=== PATIENT | female | born 2005 | race Caucasian/White ===

== ENCOUNTER 2025-04-17 04:39 | Inpatient (IN) | payer MEDICAID, OTHER ==
--- OUTSIDE RECORDS SUMMARY | 2025-04-17 04:42 | XMS REPORT | Continuity of Care Document ---
Author Name Unknown Address [address] [facility] [address] [place] [address] [facility] Address [address] [facility] [address] [place] [address] Care Team Providers Care Bilingual Branch Manager Name Role Phone JACINTA HERNANDEZ Attending Clinician Unavailable JACINTA HERNANDEZ Admitting Clinician Unavailable Results Test Description Test Time Test Comments Results Result Co mments Source If a specimen is collected by a nurse, then you MUST fill out the Collected and Collected By egan [facility] (HEMOGRAM ONLY)2016-12-10 16:52:00* Test Item Value Reference Range Interpretation Comme nts WBC (test code = WBC) 11.5 k/ul 4.8-10.8 H RBC (test code = RBC) 4.64 Millions/ul 4.20-5.40 Hemoglobin (test code = HGB) 12.3 gm/dl 12.0-14.0 Hematocrit (test code = HCT) 37.1 % 37.0-47.0 MCV (test code = MCV) 80.1 fL 77.0-95.0 MCH (test code = MCH) 26.4 pg 25.0-33.0 MCHC (test code = MCHC) 33.0 gm/dl 33.0-37.0 RDW (test code = RDWVC) 14.4 % 11.5-14.5 Platelet (test code = PLT) 217 10\S\3/ul 130-400 MPV (test code = MPV) 8.8 fL 7.4-10.4 [facility]
[2025-04-17] MEDS ORDERED: FLUMAZENIL 0.1 MG/ML (5 mL VIAL) IV ONE (04:49)
[2025-04-17] MEDS ORDERED: ONDANSETRON 4 MG/2 ML VIAL ONE ×2 (04:51→06:54)
[2025-04-17] MEDS ORDERED: ACTIVATED CHARCOAL 50 GM/240 ML ONE (04:52)
[2025-04-17] MEDS ORDERED: NALOXONE HCL 2 MG/2 ML VIAL ONE (04:52)
[2025-04-17] MEDS ORDERED: NA CHLORIDE 0.9% 1,000 ML ONE ×3 (04:56→10:07)
[2025-04-17 04:58] LABS: Absolute Lymphocytes (CBC) 4.3 K/uL (0.7-4.9); Hematocrit 45.3 % (36.0-45.0); Hemoglobin 15.1 g/dL (12.0-15.0); MCH 29.1 pg (27.0-35.0); MCHC 33.3 g/dL (32.0-36.0); MCV 87.4 fL (80-100); MPV 9.9 fL (7.6-11.3); Nucleated RBC Absolute Count 0.0 (0-0); Nucleated Red Blood Cells % 0.1 % (0-0); RBC Red Blood Cell Count 5.18 M/uL (3.86-4.86); White Blood Count 13.10 thou/uL (4.3-10.9)
[2025-04-17 05:07] LABS: PT Prothrombin Time 11.7 SECONDS (10-13.0); PTT, Activated Partial Thromb 26.9 SECONDS (27.2-37.4); Protime INR 1.04
[2025-04-17 05:23] LABS: Base Excess, VBG -0.6 mmol/L (-2.0-3.0); HCO3, Venous Blood Gas 25.7 mmol/L (21.0-29.0); O2 Saturation, VBG 88.5 % (40.0-70.0); PCO2, Venous Blood Gas 51 mmHg (41-51); PH, Venous Blood Gas 7.31 (7.32-7.42); PO2, Venous Blood Gas 61 mmHg (25-40)
[2025-04-17 05:27] LABS: ALT/SGPT 33 U/L (13-56); AST/SGOT 13 U/L (15-37); Albumin 3.5 g/dL (3.4-5.0); Albumin/Globulin Ratio 0.9 (1.1-1.8); Alkaline Phosphatase 96 U/L (45-117); Anion Gap 11.3 mEq/L (5.0-15.0); BUN Blood Urea Nitrogen 15 mg/dL (7-18); Globulin 3.8 g/dL (2.3-3.5); Glucose Level 200 mg/dL (74-106); Potassium 4.3 mEq/L (3.5-5.1)
[2025-04-17 05:32] LABS: Bilirubin Indirect, Calculated 0.2 mg/dL (0.2-0.8)
[2025-04-17 05:44] LABS: METHAMPHETAM NEGATIVE (NEGATIVE); THC Cannibis NEGATIVE (NEGATIVE)
[2025-04-17] MEDS ORDERED: Acetylcysteine 6000mg/30mL IV ONE ×2 (05:54→22:08)
[2025-04-17] MEDS ORDERED: D5W 250 ML IV ONE (06:00)
--- NOTE | 2025-04-17 06:08 | ER ---
Nurse's Notes [facility] Name: Ash Dominguez Age: 20 yrs Sex: Female : 2005 Arrival Date: 04/17/2025 Time: 04:39 Bed 4 Private MD: Diagnosis: Polypharmacy overdose, Tylenol overdose, suicide attempt, altered mental status Presentation: 04/17 04:39 Chief complaint: Brother stated that he came home and found sister with multiple bm8 bottles of medication around her and unconscious. 04:39 Coronavirus screen: At this time, the client does not indicate any symptoms associated bm8 with coronavirus-19. Ebola Screen: Patient negative for fever greater than or equal to 101.5 degrees Fahrenheit, and additional compatible Ebola Virus Disease symptoms Patient denies exposure to infectious person. Patient denies travel to an Ebola-affected area in the 21 days before illness onset. No symptoms or risks identified at this time. Initial Sepsis Screen: Does the patient meet any 2 criteria? No. Patient's initial sepsis screen is negative. Does the patient have a suspected source of infection? No. Patient's initial sepsis screen is negative. Risk Assessment: Do you want to hurt yourself or someone else? Patient reports desire/thoughts of hurting themselves or someone else. Provider notified. Onset of symptoms is unknown. 04:39 Method Of Arrival: Carried bm8 04:39 Acuity: HARVINDER 2 bm8 Triage Assessment: 04:39 General: Appears distressed, uncomfortable, Behavior is crying, drowsy. Pain: Denies bm8 pain. 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 - Infectious Disease History:: Denies. - Social history:: Smoking status: unknown. Screenin:[address] [facility] ED Fall Risk Assessment (Adult) History of falling in the last 3 months, bm8 including since admission No falls in past 3 months (0 pts) Confusion or Disorientation Yes (5 pts) Intoxicated or Sedated Yes (3 pts) Impaired Gait Yes (1 pt) Mobility Assist Device Used No (0 pt) Altered Elimination No (0 pt) Score/Fall Risk Level 3 or more points = High Risk Oriented to surroundings, Maintained a safe environment, Educated pt \\T\\ family on fall prevention, incl call for assistance when getting out of bed, Assessed \\T\\ reinforced patient's understanding of fall precautions, Hourly rounding (assess needs \\T\\ fall precautionary measures) done, Used ambulatory aids as needed (educated on \\T\\ assisted with), Used gait belt as appropriate Implemented a Fall Risk Plan of Care. Abuse screen: Denies threats or abuse. Nutritional screening: No deficits noted. Tuberculosis screening: No symptoms or risk factors identified. Assessment: 04:57 Reassessment: pt's face is covered in dried blood with small clots noted in right bm8 nares, evidence of bleeding from both nares present. General: Appears distressed, uncomfortable, obese, Behavior is crying, drowsy, Smells of alcohol. Pain: Denies pain. Neuro: Level of Consciousness is awake, obeys commands, stuporous, Oriented to person, place, time, situation. Cardiovascular: Heart tones S1 S2 present Capillary refill < 3 seconds in bilateral fingers Patient's skin is warm and dry. Rhythm is sinus tachycardia. Respiratory: Airway is patent Respiratory effort is even, unlabored, Respiratory pattern is regular, symmetrical, Breath sounds are clear bilaterally. GI: No signs and/or symptoms were reported involving the gastrointestinal system. : No signs and/or symptoms were reported regarding the genitourinary system. EENT: Nares with bleeding noted bilaterally. Derm: No signs and/or symptoms reported regarding the dermatologic system. 06:37 Reassessment: Patient appears in no apparent distress at this time. Patient and/or bm8 family updated on plan of care and expected duration. Pain level reassessed. Patient is alert, oriented x 3, equal unlabored respirations, skin warm/dry/pink. Patient denies pain at this time. 06:55 Reassessment: pt had vomitting episode, provider informed and new orders recieved. bm8 06:58 Reassessment: Patient appears in no apparent distress at this time. Patient and/or bm8 family updated on plan of care and expected duration. Pain level reassessed. Patient denies pain at this time. 07:30 Reassessment: RECD REPORT FROM CAROL VALIENTE. 20YO WF P/W INTENTIONAL OD. ICU ADMIT IN bp PROCESS. SITTER AT B/S. 08:22 Reassessment: Point of contact: Lilo Dominguez (mother) . Psych: 04:39 [place] Suicide Severity Screening: In the past month, have you wished you were bm8 or wished you could go to sleep and not wake up? Patient responds "yes." Based off the client's responses additional C-SSRS screening is required. "In the past month, have you actually had any thoughts of killing yourself?" Patient responds "yes." Based off the client's response additional [place] suicide severity screening questions to be further documented on paper forms. "In your lifetime, have you ever done anything, started to do anything, or prepared to do anything to end your life?" Patient responds "yes." Patient reports suicidal intent occurred greater than 3 months prior. 04:39 Subjective: Patient's mood is sad, hopeless, Having thoughts of suicide. Plan for bm8 suicide is take pills and never wake up. Objective: Patient is cooperative, using poor eye contact, Speech is slow, soft, slurred, Affect is flat, Patient has mutilated themselves by cutting on thighs. Interventions: Removed personal items and placed in bag. Patient placed in hospital gown. Searched person for dangerous items. Urine collected and sent for urine drug test. Belonging list filled out. Safety Checks: Personal items have not been removed. pt is in trauma bay Door is open. Visitors are present. Patient uses. Commitment: Patient will be an involuntary commitment. 04:45 Safety Checks: Personal items have not been removed. pt is in trauma bay Door is open. bm8 Visitors are present. 05:45 Safety Checks: Personal items have not been removed. pt is in trauma bay Door is open. bm8 Visitors are present. 06:45 Safety Checks: Personal items have not been removed. pt is in trauma bay Door is open. bm8 Visitors are present. Vital Signs: 04:59 BP 131 / 88; Pulse 126; Resp 26; Temp 98.7; Pulse Ox 95% ; Weight 81.65 kg; Height 5 bm8 ft. 3 in. ; Pain 0/10; 06:37 BP 103 / 52; Pulse 84; Resp 20; Temp 98.7; Pulse Ox 96% ; Pain 0/10; bm8 06:58 BP 103 / 52; Pulse 85; Resp 17; Temp 98.7; Pulse Ox 97% ; Pain 0/10; bm8 07:29 BP 104 / 64; Pulse 83; Resp 21; Pulse Ox 98% ; bp 16:59 BP 103 / 87; Pulse 74; Resp 16; Temp 98(O); Pulse Ox 100% on R/A; iw 04:59 Body Mass Index 31.89 (81.65 kg, 160.02 cm) bm8 04:59 Pain Scale: Adult bm8 06:37 Pain Scale: Adult bm8 06:58 Pain Scale: Adult bm8 [place] Score: 04:59 Eye Response: to voice(3). Motor Response: obeys commands(6). Verbal Response: bm8 oriented(5). Total: 14. 06:37 Eye Response: spontaneous(4). Motor Response: obeys commands(6). Verbal Response: bm8 oriented(5). Total: 15. 06:58 Eye Response: to voice(3). Motor Response: obeys commands(6). Verbal Response: bm8 oriented(5). Total: 14. ED Course: 04:39 Arm band placed on right wrist. bm8 04:42 Patient arrived in ED. rv1 04:44 Sandra Perdue MD is Attending Physician. sp3 05:02 Patient has correct armband on for positive identification. Bed in low position. Call bm8 light in reach. Side rails up X2. Adult w/ patient. Client placed on continuous cardiac and pulse oximetry monitoring. NIBP monitoring applied. teletypesetter monitor on. Pulse ox on. NIBP on. Door closed. Noise minimized. Warm blanket given. Pillow given. Verbal reassurance given. Head of bed elevated. 05:02 No provider procedures requiring assistance completed. Initial lab(s) drawn, by , clifton sent to lab. Inserted saline lock: 18 gauge in right antecubital area, using aseptic technique. Blood collected. Flushed with 10 mL NS. Patient maintains SpO2 saturation greater than 95% on room air. 05:05 Triage completed. bm8 05:13 Colin Bateman, RN is Primary Nurse. bm8 05:16 Straight cath inserted, using sterile technique, Specimen obtained. 8fr Returned clear bm8 yellow urine. Patient tolerated well. 05:24 CT Head Brain wo Cont In Process Unspecified. EDMS 05:24 CT Facial Bones W/O Con In Process Unspecified. EDMS 06:07 Prince Greenwood MD is Hospitalizing Provider. sp3 06:28 Henny Bhatt MD is Hospitalizing Provider. sp3 07:52 Patient admitted, IV remains in place. iw Administered Medications: 05:13 Drug: Flumazenil IVP 0.2 mg IVP once; Over 15 seconds Route: IVP; Site: right bm8 antecubital; 06:36 Follow up: Response: No adverse reaction bm8 05:13 Drug: Naloxone IVP 1 mg IVP once Route: IVP; Site: right antecubital; bm8 06:36 Follow up: Response: No adverse reaction bm8 05:13 Drug: Ondansetron IVP 4 mg IVP once; over 2 minutes Route: IVP; Site: right antecubital;bm8 06:36 Follow up: Response: No adverse reaction bm8 05:14 Drug: NS 0.9% IV 1000 ml IV at 1 bolus Per protocol; to be given as a bolus over 60 bm8 minutes Route: IV; Rate: 1 bolus; Site: right antecubital; 06:36 Follow up: Response: No adverse reaction; IV Status: Completed infusion bm8 05:39 Drug: Actidose PO Suspension (50 g/240 mL) 100 grams PO once Route: PO; bm8 06:36 Follow up: Response: No adverse reaction bm8 06:11 Drug: Acetadote IV 150 mg/kg IV at calculated rate once; not to exceed 16.5 grams br2 administer over 1 hour Route: IV; Rate: 200 ml/hr; Site: right antecubital; 08:00 Follow up: IV Status: Completed infusion iw 06:36 Drug: NS 0.9% IV 1000 ml IV at 1 bolus Per protocol; to be given as a bolus over 60 bm8 minutes Route: IV; Rate: 1 bolus; Site: right antecubital; 08:24 Follow up: IV Status: Completed infusion iw 06:57 Drug: Ondansetron IVP 4 mg IVP once; over 2 minutes Route: IVP; Site: right antecubital;bm8 07:53 Follow up: Response: No adverse reaction iw 08:15 Drug: Acetadote IV 50 mg/kg IV at calculated rate once; not to exceed 5.5 grams iw administer over 4 hours Route: IV; Rate: calculated rate; Site: right antecubital; 08:24 Follow up: IV Status: Infusion continued upon admission iw Medication: 05:02 VIS not applicable for this client. bm8 Outcome: 06:08 Decision to Hospitalize by Provider. sp3 07:15 Admitted to ER Hold. Please see [facility] for further documentation. iw 07:15 Condition: stable 07:15 Instructed on the need for admit, 19:28 Patient left the ED. lg3 Signatures: Dispatcher [employer] EDMS Marilu Puckett RN RN iw Idania Barroso RN STEFFANIE ss Isaac Xie RN RN Carol Paz RN RN lg3 Sandra Perdue MD MD sp3 Arlene Zaidi rv1 Colin Bateman RN STEFFANIE bm8 Ofelia Winston RN RN br2 Corrections: (The following items were deleted from the chart) 05:02 04:57 Neuro: Level of Consciousness is awake, obeys commands, stuporous, Oriented to bm8 person, situation, bm8 05:13 04:39 Risk Assessment: Do you want to hurt yourself or someone else? Patient reports no bm8 desire to harm self or others. bm8
--- NOTE | 2025-04-17 06:08 | EDPHYS ---
Physician Documentation [facility] Name: Ash Dominguez Age: 20 yrs Sex: Female : 2005 Arrival Date: 04/17/2025 Time: 04:39 Bed 4 Private MD: ED Physician Sandra Perdue HPI: 04/17 05:08 This 20 yrs old Female presents to ER via Carried with complaints of Possible Overdose. sp3 05:08 20-year-old female brought in by family in private vehicle for probable overdose, sp3 facial injury and altered mental status. Mother found sister who is the patient on the floor with altered mental status with "a bunch of empty pills everywhere". Mother states that the medicines included antibiotics, potentially Tylenol No. 3, potentially [place], among others. Brother also states that she took "handlebars". All the medicines were his and prior prescriptions of his. Patient is not on any antidepression or psychotic medications. Patient does have history of major depression. Patient uncooperative and altered therefore ROS, history and physical limited.. MANAGER STUDIO: 04:39 unknown bm8 Historical: - Allergies: 04:59 No Known Allergies; bm8 - Home Meds: 04:59 Unable to obtain [Active]; bm8 - PMHx: 04:59 Unable to Obtain; bm8 - PSHx: 04:59 Unable to Obtain; bm8 - Immunization history:: Adult Immunizations unknown. - Infectious Disease History:: Denies. - Social history:: Smoking status: unknown. ROS: 05:10 Unable to obtain ROS due to altered mental status, sp3 Exam: 05:10 ECG was reviewed by the Attending Physician. EKG demonstrates sinus tachycardia at 120 sp3 bpm with normal intervals with QTc at 442 ms, normal QRS, normal axis, normal ST/T-segment's without evidence of ischemia and isolated T wave inversion in lead III. 05:10 Unable to obtain exam due to altered mental status, 05:14 Constitutional: The patient appears Limited physical exam due to altered mental status. sp3 Patient had dried blood and abrasions to the nose presumably from fall injury. No other signs of trauma noted. Lungs clear the patient has gag reflex and is able to converse although she is quite drowsy. Abdomen is soft, no other swelling or extremity abnormalities. Patient is tachycardic in the 120s with normal blood pressure, afebrile and 95% on room air pulse oxygenation. Vital Signs: 04:59 BP 131 / 88; Pulse 126; Resp 26; Temp 98.7; Pulse Ox 95% ; Weight 81.65 kg; Height 5 bm8 ft. 3 in. ; Pain 0/10; 06:37 BP 103 / 52; Pulse 84; Resp 20; Temp 98.7; Pulse Ox 96% ; Pain 0/10; bm8 06:58 BP 103 / 52; Pulse 85; Resp 17; Temp 98.7; Pulse Ox 97% ; Pain 0/10; bm8 07:29 BP 104 / 64; Pulse 83; Resp 21; Pulse Ox 98% ; bp 16:59 BP 103 / 87; Pulse 74; Resp 16; Temp 98(O); Pulse Ox 100% on R/A; iw 04:59 Body Mass Index 31.89 (81.65 kg, 160.02 cm) bm8 04:59 Pain Scale: Adult bm8 06:37 Pain Scale: Adult bm8 06:58 Pain Scale: Adult bm8 [place] Coma Score: 04:59 Eye Response: to voice(3). Motor Response: obeys commands(6). Verbal Response: bm8 oriented(5). Total: 14. 06:37 Eye Response: spontaneous(4). Motor Response: obeys commands(6). Verbal Response: bm8 oriented(5). Total: 15. 06:58 Eye Response: to voice(3). Motor Response: obeys commands(6). Verbal Response: bm8 oriented(5). Total: 14. MDM: 04:44 Medical Screening Exam initiated sp3 05:15 Data reviewed: vital signs, nurses notes, old medical records, lab test result(s), EKG, sp3 radiologic studies. ED course: 20-year-old female with probable polypharmacy overdose and potential head and face injuries. Patient does have gag reflex and is able to maintain her airway. We will treat with toxicology workup as well as CT scan of the head and facial bones. Treatment will include flumazenil, Narcan, ondansetron and activated charcoal coupled with normal saline. Full labs and urine tox as well as hCG pending. Disposition probable admission for observation with subsequent psychiatric workup and evaluation.. 05:51 ED course: Patient more awake after the Narcan and flumazenil. She is able to take 50 g sp3 of activated charcoal with remainder of 50 g to be given over the next 30 to 40 minutes. Initial acetaminophen level approximating 90 minutes after intake send 58. We are going to start Acetadote due to unknown quantity of Tylenol ingestion. Patient will be placed in the ICU with serial acetaminophen levels and general precautionary care.. 04/17 04:48 Order name: Acetaminophen; Complete Time: 05:49 sp3 04/17 04:48 Order name: Basic Metabolic Panel; Complete Time: 05:49 sp3 04/17 04:48 Order name: CBC with Diff; Complete Time: 05:49 sp3 04/17 04:48 Order name: ETOH Level; Complete Time: 06:14 sp3 04/17 04:48 Order name: Hepatic Function; Complete Time: 05:50 sp3 04/17 04:48 Order name: PT-INR; Complete Time: 05:50 sp3 04/17 04:48 Order name: Test, Urine; Complete Time: 05:50 sp3 04/17 04:48 Order name: Ptt, Activated; Complete Time: 05:50 sp3 04/17 04:48 Order name: Salicylate; Complete Time: 05:50 sp3 04/17 04:48 Order name: Urine Drug Screen; Complete Time: 05:50 sp3 04/17 04:48 Order name: VBG; Complete Time: 05:50 sp3 04/17 06:58 Order name: CBC with Automated Diff EDMS 04/17 06:58 Order name: CBC with Automated Diff EDMS 04/17 06:58 Order name: Comprehensive Metabolic Panel EDMS 04/17 06:58 Order name: Comprehensive Metabolic Panel EDMS 04/17 06:58 Order name: Protime (+INR) EDMS 04/17 06:58 Order name: Protime (+INR); Complete Time: 19:12 EDMS 04/17 06:58 Order name: PTT, Activated Partial Thromb EDMS 04/17 06:58 Order name: PTT, Activated Partial Thromb EDMS 04/17 06:58 Order name: Comprehensive Metabolic Panel; Complete Time: 19:12 EDMS 04/17 06:58 Order name: Liver (Hepatic) Function; Complete Time: 19:12 EDMS 04/17 17:34 Order name: Acetaminophen iw 04/17 18:09 Order name: Acetaminophen Level; Complete Time: 19:12 EDMS 04/17 04:48 Order name: CT Head Brain wo Cont; Complete Time: 19:12 sp3 04/17 04:48 Order name: CT Facial Bones W/O Con; Complete Time: 19:12 sp3 04/17 04:48 Order name: EKG - Nurse/Tech; Complete Time: 05:14 sp3 04/17 04:48 Order name: IV Saline Lock; Complete Time: 05:14 sp3 04/17 04:48 Order name: Labs collected and sent; Complete Time: 05:14 sp3 04/17 04:48 Order name: Suicide Precautions; Complete Time: 05:14 sp3 04/17 04:48 Order name: Suicide Screening ([place]); Complete Time: 05:14 sp3 04/17 04:48 Order name: Byrd; Complete Time: 05:18 sp3 04/17 04:48 Order name: NPO; Complete Time: 05:14 sp3 04/17 06:42 Order name: Suicide Precautions; Complete Time: 06:43 sp3 Administered Medications: 05:13 Drug: Flumazenil IVP 0.2 mg IVP once; Over 15 seconds Route: IVP; Site: right bm8 antecubital; 06:36 Follow up: Response: No adverse reaction bm8 05:13 Drug: Naloxone IVP 1 mg IVP once Route: IVP; Site: right antecubital; bm8 06:36 Follow up: Response: No adverse reaction bm8 05:13 Drug: Ondansetron IVP 4 mg IVP once; over 2 minutes Route: IVP; Site: right antecubital;bm8 06:36 Follow up: Response: No adverse reaction bm8 05:14 Drug: NS 0.9% IV 1000 ml IV at 1 bolus Per protocol; to be given as a bolus over 60 bm8 minutes Route: IV; Rate: 1 bolus; Site: right antecubital; 06:36 Follow up: Response: No adverse reaction; IV Status: Completed infusion bm8 05:39 Drug: Actidose PO Suspension (50 g/240 mL) 100 grams PO once Route: PO; bm8 06:36 Follow up: Response: No adverse reaction bm8 06:11 Drug: Acetadote IV 150 mg/kg IV at calculated rate once; not to exceed 16.5 grams br2 administer over 1 hour Route: IV; Rate: 200 ml/hr; Site: right antecubital; 08:00 Follow up: IV Status: Completed infusion iw 06:36 Drug: NS 0.9% IV 1000 ml IV at 1 bolus Per protocol; to be given as a bolus over 60 bm8 minutes Route: IV; Rate: 1 bolus; Site: right antecubital; 08:24 Follow up: IV Status: Completed infusion iw 06:57 Drug: Ondansetron IVP 4 mg IVP once; over 2 minutes Route: IVP; Site: right antecubital;bm8 07:53 Follow up: Response: No adverse reaction iw 08:15 Drug: Acetadote IV 50 mg/kg IV at calculated rate once; not to exceed 5.5 grams iw administer over 4 hours Route: IV; Rate: calculated rate; Site: right antecubital; 08:24 Follow up: IV Status: Infusion continued upon admission iw Disposition Summary: 04/17/25 06:08 Hospitalization Ordered Notes: Hospitalization Status: Inpatient Admission sp3 Condition: Critical sp3 Problem: new sp3 Symptoms: have worsened sp3 Bed/Room Type: Standard sp3 Provider: Henny Bhatt(04/17/25 06:28) sp3 [facility]04[facility] 17:29[facility] Room Ass[place]: [facility] [place] [facility](04/17/25 17:29) eb Diagnosis - Polypharmacy overdose, Tylenol overdose, suicide attempt, altered mental status sp3 Forms: - Medication Reconciliation Form sp3 - SBAR form sp3 - Leadership Thank You Letter sp3 Critical care time excluding procedures: 05:18 Critical care time: Bedside Care: 20 minutes, Consultation: 10 minutes, Family sp3 Intervention: 10 minutes. Total time: 40 minutes Signatures: Dispatcher [employer] EDMarilu Mcfadden, RN RN iw Linda Radford Setul, MD MD sp3 Jackie Lopez PA-C PAFranklin sb4 Colin Bateman RN RN bm8 Ofelia Winston, RN RN br2 Corrections: (The following items were deleted from the chart) 04:49 04:49 ACETAMINOPHEN+C.LAB.BRZ ordered. EDMS EDMS 04:49 04:49 BASIC METABOLIC PANEL+C.LAB.BRZ ordered. EDMS EDMS 04:49 04:49 CBC+H.LAB.BRZ ordered. EDMS EDMS 04:49 04:49 ETHANOL+C.LAB.BRZ ordered. EDMS EDMS 04:49 04:49 HEPATIC FUNCTION+C.LAB.BRZ ordered. EDMS EDMS 04:49 04:49 PROTIME (+INR)+COAG.LAB.BRZ ordered. EDMS EDMS 04:49 04:49 Test, Urine+UC.LAB.BRZ ordered. EDMS EDMS 04:49 04:49 PTT, ACTIVATED+COAG.LAB.BRZ ordered. EDMS EDMS 04:49 04:49 SALICYLATE+C.LAB.BRZ ordered. EDMS EDMS 04:49 04:49 URINE DRUG SCREEN+UC.LAB.BRZ ordered. EDMS EDMS 04:49 04:49 Head Brain Wo Cont+CT.RAD.BRZ ordered. EDMS EDMS 04:49 04:49 Facial Bones W/ MPR+CT.RAD.BRZ ordered. EDMS EDMS 04:49 04:49 Venous Blood Gas+RC.LAB.BRZ ordered. EDMS EDMS 05:15 05:08 20-year-old female brought in by family in private vehicle for probable overdose, sp3 facial injury and altered mental status. Mother found sister who is the patient on the floor with altered mental status with "a bunch of empty pills everywhere". Mother states that the medicines included antibiotics, potentially Tylenol No. 3, potentially [place], among others. All the medicines were his and prior prescriptions of his. Patient is not on any antidepression or psychotic medications. Patient does have history of major depression. Patient uncooperative and altered therefore ROS, history and physical limited.. sp3 06:28 06:08 Prince Krystyna sp3 sp3 08:16 06:08 Intensive Care Unit sp3 iw 08:16 06:08 sp3 iw 17:29 08:16 BR ER HOLD iw eb 17:29 08:16 ERHOLD- iw eb
--- NOTE | 2025-04-17 06:35 | RAD REPORT ---
CLINICAL HISTORY: facial trauma COMPARISON: None. TECHNIQUE: CT HEAD WITHOUT IV CONTRAST on 04/17/2025 4:48 AM CDT This exam was performed according to our departmental dose-optimization program, which includes autom ated exposure control, adjustment of the mA and/or kV according to patient size and/or use of iterative reconstruction technique. FINDINGS: There is no acute hemorrhage, mass effect or midline shift. Sullivan-white differentiation is preserved. There is no hydrocephalus. There is no significant volume loss for age. The calvarium is intact. Orbits and globes are unremarkable. The paranasal sinuses are clear. Mastoid air cells are clear. IMPRESSION: No acute intracranial findings. Electronically signed by: Doimnik Hodge MD 04/17/2025 06:31 AM CDT RP Due to temporary technical issues with the PACS/MessageParty reporting system, reports are being juana d by the in-house radiologist without review as a courtesy to ensure prompt reporting the interpreting radiologist is fully responsible for the content of the report. Transcribed Date/Time: 04/17/2025 6:35 AM
--- NOTE | 2025-04-17 06:43 | RAD REPORT ---
CLINICAL HISTORY: facial injury COMPARISON: None. TECHNIQUE: CT MAXILLOFACIAL WITHOUT IV CONTRAST on 04/17/2025 4:48 AM CDT This exam was performed according to our departmental dose-optimization program, which includes autom ated exposure control, adjustment of the mA and/or kV according to patient size and/or use of iterative reconstruction technique. FINDINGS: There is no acute fracture. The paranasal sinuses are clear. Orbits and globes are unremarkable. Mast oid air cells are clear. Temporomandibular joints are intact. There is minimal left infraorbital soft tissue swelling. IMPRESSION: No acute fracture. Electronically signed by: Dominik Hodge MD 04/17/2025 06:38 AM CDT RP Due to temporary technical issues with the PACS/[employer] reporting system, reports are being juana d by the in-house radiologist without review as a courtesy to ensure prompt reporting the interpreting radiologist is fully responsible for the content of the report. Transcribed Date/Time: 04/17/2025 6:42 AM
[2025-04-17] MEDS ORDERED: ONDANSETRON 4 MG/2 ML VIAL IV PRN (06:52)
[2025-04-17] MEDS: NA CHLORIDE 0.9% 1,000 ML IV SCH (07:00)
[2025-04-17 07:51] VITALS: BMI 31.9
[2025-04-17 10:58] LABS: PT Prothrombin Time 13.2 SECONDS (10-13.0); Protime INR 1.17
[2025-04-17 11:09] LABS: ALT/SGPT 43 U/L (13-56); AST/SGOT 19 U/L (15-37); Albumin 2.7 g/dL (3.4-5.0); Albumin/Globulin Ratio 0.8 (1.1-1.8); Alkaline Phosphatase 64 U/L (45-117); Anion Gap 9.7 mEq/L (5.0-15.0); BUN Blood Urea Nitrogen 10 mg/dL (7-18); Globulin 3.2 g/dL (2.3-3.5); Glucose Level 120 mg/dL (74-106); Potassium 3.7 mEq/L (3.5-5.1)
[2025-04-17 11:11] LABS: Bilirubin Indirect, Calculated 0.1 mg/dL (0.2-0.8)
--- NOTE | 2025-04-17 18:25 | P.HP ---
Certification for Inpatient Patient admitted to: Inpatient With expected LOS: >2 Midnights Patient will require the following post-hospital care: Other Practitioner: I am a practitioner with admitting privileges, knowledge of patient current condition, hospital course, and medical plan of care. Services: Services provided to patient in accordance with Admission requirements found in Title 42 Section 412.3 of the Code of Federal Regulations Patient History Date of Service: 04/17/25 Reason for admission: Suicidal ideations; acetaminophen toxicity History of Present Illness: patient is a 20-year-old female who has had multiple admissions before for suicidal ideation. Patient states she has been depressed she really is unsure why she got so depressed. She got to the point where she wanted to kill herself. She ended up taking a lot of different pills including Tylenol with codeine and hydrocodone. Patient was admitted to the hospital for by her family. In the ER patient was found to have elevated segmented levels. Patient was started on N-acetylcysteine. At this time patient will be admitted to the hospital for further workup. Will get inpatient psych evaluation once patient is medically cleared. Will recheck acetaminophen levels and will continue with N-acetylcysteine treatments. Patient will be admitted for inpatient hospital ization. Allergies No Known Drug Allergies Allergy (Unverified 10/09/14 18:00) Unknown - Past Medical/Surgical History -: Major depressive disorder -: prior suicide attempts Past Surgical History: Patient denies surgical history - Family History Father Family History: Reviewed- Non-Contributory - Social History Smoking Status: Unknown if ever smoked Alcohol use: No CD- Drugs: No Review of Systems 10-point ROS is otherwise unremarkable Physical Examination - Vital Signs Temperature: 98.1 F Blood Pressure: 103/57 Pulse: 72 Respirations: 18 Pulse Ox (%): 98 - Physical Exam General: Alert, In no apparent distress, Oriented x3 HEENT: Atraumatic, PERRLA, Mucous membr. moist/pink, EOMI, Sclerae nonicteric Neck: Supple, 2+ carotid pulse no bruit, No LAD, Without JVD or thyroid abnormality Respiratory: Clear to auscultation bilaterally, Normal air movement Cardiovascular: Regular rate/rhythm, Normal S1 S2 Gastrointestinal: Normal bowel sounds, Soft and benign, Non-distended, No tenderness Musculoskeletal: No clubbing, No swelling, No tenderness Integumentary: No rashes Neurological: Normal gait, Normal speech, Normal strength at 5/5 x4 extr, Normal tone, Normal affect Lymphatics: No axilla or inguinal lymphadenopathy - Studies Laboratory Data (last 24 hrs) 04/17/25 04/17/25 04/17/25 04:43 04:43 04:43 WBC 13.10 H Hgb 15.1 H Hct 45.3 H Plt Count 217 PT 11.7 INR 1.04 APTT 26.9 L Sodium 138 Potassium 4.3 BUN 15 Creatinine 1.01 Glucose 200 H Total Bilirubin 0.4 AST 13 L ALT 33 Alkaline Phosphatase 96 Assessment & Plan - Problems (Diagnosis) (1) Acetaminophen toxicity Current Visit: Yes Status: Acute (2) Suicide attempt by acetaminophen overdose Current Visit: Yes Status: Acute - Plan 1. Patient with suicidal attempt secondary at Tylenol use; patient has had prior episodes of suicide attempt. Will recommend inpatient psych once medically stable. Repeat Tylenol levels and will check LFTs. Continue with an acetylcysteine. At this time patient will be admitted for hospitalization. Discharge Plan: Psychiatry Plan to discharge in: Greater than 2 days - Advance Directives Does patient have a Living Will: No Does patient have a Durable POA for Healthcare: No - Code Status/Comfort Care Code Status Assessed: Yes Code Status: Full Code Critical Care: No Time Spent Managing PTS Care (In Minutes): 50
[2025-04-17] MEDS ORDERED: D5W 1,000 ML IV ONE (22:02)
[2025-04-17] MEDS: ACETYLCYSTEINE 8,000 MG in D5W 1,000 ML IV SCH (22:36)
[2025-04-18 02:04] VITALS: O2SAT 99
[2025-04-18 05:08] LABS: Absolute Lymphocytes (CBC) 3.6 K/uL (0.7-4.9); Hematocrit 36.2 % (36.0-45.0); Hemoglobin 12.1 g/dL (12.0-15.0); MCH 29.4 pg (27.0-35.0); MCHC 33.5 g/dL (32.0-36.0); MCV 87.8 fL (80-100); MPV 10.1 fL (7.6-11.3); Nucleated RBC Absolute Count 0.0 (0-0); Nucleated Red Blood Cells % 0.1 % (0-0); RBC Red Blood Cell Count 4.12 M/uL (3.86-4.86); White Blood Count 8.90 thou/uL (4.3-10.9)
[2025-04-18 05:29] LABS: ALT/SGPT 28.0 U/L (13-56); AST/SGOT 16.0 U/L (15-37); Albumin 2.5 g/dL (3.4-5.0); Albumin/Globulin Ratio 1.0 (1.1-1.8); Alkaline Phosphatase 65.0 U/L (45-117); Anion Gap 6.3 mEq/L (5.0-15.0); BUN Blood Urea Nitrogen 10.0 mg/dL (7-18); Globulin 2.5 g/dL (2.3-3.5); Glucose Level 137.0 mg/dL (74-106); Potassium 3.3 mEq/L (3.5-5.1)
[2025-04-18 07:07] LABS: PT Prothrombin Time 12.1 SECONDS (10-13.0); PTT, Activated Partial Thromb 23.7 SECONDS (27.2-37.4); Protime INR 1.07
[2025-04-18 13:30] VITALS: BP 126/75; TEMP 97.9
== END 2025-04-18 14:11 | DRG 918 ==
LOC: ER 04:39 → ERHOLD 06:52 → 2ND 19:09
PROVIDERS: ADMIT Hospitalist; ATTEND Hospitalist
DX: T39.1X2A Poisoning by 4-Aminophenol derivatives, intentional self-harm, initial encounter (principal); T36.92XA Poisoning by unspecified systemic antibiotic, intentional self-harm, initial encounter; R41.82 Altered mental status, unspecified; T40.2X2A Poisoning by other opioids, intentional self-harm, initial encounter; Z91.51 Personal history of suicidal behavior; Y92.009 Unspecified place in unspecified non-institutional (private) residence as the place of occurrence of the external cause
CPT/HCPCS: 36415; 51702; 70450; 70486; 76377; 80048; 80053; 80076; 80143; 80179; 80307; 81025; 82077; 82248; 82803; 83735; 85025; 85610; 85730; 93005; 96361; 96365; 96366; 96375; 99291; J0132; J2310; J2405; J7030; J7060